=== PATIENT | female | born 1940 | race American Indian/Alaskan Native ===

== ENCOUNTER 2017-05-18 01:52 | Emergency (ER) | payer MEDICARE, OTHER ==
[2017-05-18 02:09] VITALS: O2SAT 98
--- NOTE | 2017-05-18 02:46 | ED PDOC ---
Arrival/HPI - General Chief Complaint: ENT Problem Time Seen by Provider: 05/18/17 02:24 Historian: Patient, Family - History of Present Illness Narrative History of Present Illness (Text): 05/18/17 02:40 Trina Rodriguez is a 77 year old female, whose past medical history includes hypertension and diabetes, who presents to the Emergency department accompanied by family complaining of bilateral ear aches for the past 2-3 days. As per relative, patient [place] [facility] [place] prescribed Amoxicillin, and discharged home. Relative states patient has been medication as directed but denies any significant improvement. Patient denies any fever, chills, chest pain, nausea, vomiting, neck pain, headache, dizziness, or any other complaints. Time/Duration: < week (2-3 days) Symptom Onset: Gradual Symptom Course: Unchanged Activities at Onset: Light Context: Home Past Medical History - Provider Review Nursing Documentation Reviewed: Yes - Infectious Disease Hx of Infectious Diseases: None - Cardiac Hx Cardiac Disorders: Yes Hx Hypertension: Yes - Endocrine/Metabolic Hx Endocrine Disorders: Yes Hx Diabetes Mellitus Type 2: Yes Hx Hypothyroidism: Yes - Psychiatric Hx Substance Use: No Family/Social History - Physician Review Nursing Documentation Reviewed: Yes Family/Social History: Unknown Family HX Smoking Status: Never Smoked Hx Alcohol Use: No Hx Substance Use: No Allergies/Home Meds Allergies/Adverse Reactions: Allergies No Known Allergies Allergy (Verified 05/18/17 02:45) Review of Systems - Physician Review All systems were reviewed & negative as marked: Yes - Review of Systems Constitutional: Normal. absent: Fevers Eyes: Normal ENT: Other (+bilateral ear ache) Respiratory: Normal Cardiovascular: Normal Gastrointestinal: Normal Genitourinary Female: Normal Musculoskeletal: Normal Skin: Normal Neurological: Normal Endocrine: Normal Hemo/Lymphatic: Normal Psychiatric: Normal Physical Exam Vital Signs Reviewed: Yes Vital Signs Temp Pulse Resp BP Pulse Ox 05/18/17 03:47 98.2 F 76 17 148/72 98 05/18/17 02:31 98.9 F 68 18 179/68 H 98 05/18/17 02:05 98.9 F 68 18 179/66 H 98 Temperature: Afebrile Blood Pressure: Hypertensive Pulse: Regular Respiratory Rate: Normal Appearance: Positive for: Well-Appearing, Non-Toxic, Comfortable Pain Distress: None Mental Status: Positive for: Alert and Oriented X 3 - Systems Exam Head: Present: Atraumatic, Normocephalic Pupils: Present: PERRL Extroacular Muscles: Present: EOMI Conjunctiva: Present: Normal Ears: Present: Erythema (Erythema to bilaterale ear canals, Left TM erythema) Mouth: Present: Moist Mucous Membranes Pharnyx: Present: Normal. No: ERYTHEMA, EXUDATE, TONSILS ENLARGED, Peritonsilar Swelling, Uvular Deviation, Muffled/Hoarse Voice, Strider, Soft Palate/Uvular Edema Nose (External): Present: Atraumatic Nose (Internal): Present: Normal Inspection Neck: Present: Normal Range of Motion. No: Meningeal Signs, MIDLINE TENDERNESS , Paraspinal Tenderness Respiratory/Chest: Present: Clear to Auscultation, Good Air Exchange. No: Respiratory Distress, Accessory Muscle Use Cardiovascular: Present: Regular Rate and Rhythm, Normal S1, S2. No: Murmurs Abdomen: Present: Normal Bowel Sounds. No: Tenderness, Distention, Peritoneal Signs Upper Extremity: Present: Normal Inspection. No: Cyanosis, Edema Neurological: Present: GCS=15, CN II-XII Intact, Speech Normal Skin: Present: Warm, Dry, Normal Color. No: Rashes Psychiatric: Present: Alert, Oriented x 3, Normal Insight, Normal Concentration Medical Decision Making ED Course and Treatment: 05/18/17 02:40 Impression: 77 year old female complaining of bilateral ear aches for the past 2-3 days. Differential Diagnosis included but are not limited to: otitis externa vs. otitis media Plan: -- Ciprodex -- Ultram -- Reassess and disposition Progress Notes: - Medication Orders Current Medication Orders: Discontinued Medications Ciprofloxacin/Dexamethasone (Ciprodex Otic) 4 drop AU ONCE ONE PRN Reason: Protocol Stop: 05/18/17 02:48 Last Admin: 05/18/17 03:38 Dose: 4 drop Tramadol HCl (Ultram) 50 mg PO STAT STA Stop: 05/18/17 02:49 Last Admin: 05/18/17 03:38 Dose: 50 mg MAR Pain Assessment Document 05/18/17 03:38 IT (Rec: 05/18/17 03:39 IT [id number]) Pain Reassessment Is this a pain reassessment? No Sleep Is patient sleeping during reassessment? No Presence of Pain Presence of Pain Yes Pain Scale Used Pain Scale Used Numeric - Scribe Statement The provider has reviewed the documentation as recorded by the Petra Espinoza Provider Scribe Attestation: All medical record entries made by the Scribe were at my direction and personally dictated by me. I have reviewed the chart and agree that the record accurately reflects my personal performance of the history, physical exam, medical decision making, and the department course for this patient. I have also personally directed, reviewed, and agree with the discharge instructions and disposition. Disposition/Present on Arrival - Present on Arrival Any Indicators Present on Arrival: No History of DVT/PE: No History of Uncontrolled Diabetes: Yes Urinary Catheter: No History of Decub. Ulcer: No History Surgical Site Infection Following: None - Disposition Have Diagnosis and Disposition been Completed?: Yes Diagnosis: Otitis externa Disposition: HOME/ ROUTINE Disposition Time: 02:49 Patient Plan: Discharge Condition: GOOD Discharge Instructions (ExitCare): Otitis Externa (ED) Additional Instructions: Medication as prescribed/avoid placing any water to the ear canals/follow up with your doctor this week Prescriptions: Ciprofloxacin/Dexamethasone [Ciprodex Otic] 4 drop AU BID #1 bottle traMADol/Acetaminophen [Ultracet 325 MG-37.5 MG] 1 tab PO Q6 PRN #16 tab PRN Reason: Pain Referrals: Brian Taylor DO [Staff Provider] - Follow up with primary Forms: [employer] ([place])
[2017-05-18] MEDS ORDERED: Ciprofloxacin/Dexamethasone OTIC SUSP AU ONE (02:47)
[2017-05-18 03:49] VITALS: BP 148/72; PULSE 76; RESP 17; TEMP 98.2
== END 2017-05-18 03:49 | disposition home or self-care (01) ==
LOC: MERGE 01:52 → ED 01:52
DX: H60.93 Unspecified otitis externa, bilateral (principal)

== ENCOUNTER 2017-07-26 11:42 | Emergency (ER) | payer MEDICARE ==
[2017-07-26 12:00] VITALS: BP 170/85; PULSE 89; RESP 18; TEMP 98.4; O2SAT 98
--- NOTE | 2017-07-26 12:06 | ED PDOC ---
Arrival/HPI - General Chief Complaint: ENT Problem Time Seen by Provider: 07/26/17 11:46 Historian: Patient - History of Present Illness Narrative History of Present Illness (Text): 07/26/17 12:03 A 77 year old female, whose past medical history includes diabetes, presents to the emergency department complaining of her ears feeling "clogged" since yesterday. Patient denies any pain or discomfort. Patient denies any fever, chills, nausea, vomiting, abdominal pain, chest pain, shortness of breath, headache, dizziness or any other complaints. Time/Duration: Other (yesterday) Symptom Course: Unchanged Context: Home Past Medical History - Provider Review Nursing Documentation Reviewed: Yes - Infectious Disease Hx of Infectious Diseases: None - Cardiac Hx Cardiac Disorders: Yes Hx Hypertension: Yes - Endocrine/Metabolic Hx Endocrine Disorders: Yes Hx Diabetes Mellitus Type 1: Yes Hx Hyperthyroidism: Yes - Psychiatric Hx Substance Use: No Family/Social History - Physician Review Nursing Documentation Reviewed: Yes Family/Social History: No Known Family HX Smoking Status: Never Smoked Hx Alcohol Use: No Hx Substance Use: No Allergies/Home Meds Allergies/Adverse Reactions: Allergies No Known Allergies Allergy (Verified 07/26/17 12:00) Review of Systems - Review of Systems Constitutional: absent: Fevers, Night Sweats ENT: Other ("Clogged" ears). absent: TMJ Pain Respiratory: absent: SOB Cardiovascular: absent: Chest Pain Gastrointestinal: absent: Abdominal Pain, Nausea, Vomiting Neurological: absent: Headache, Dizziness Physical Exam - Physical Exam Narrative Physical Exam (Text): Constitutional: No acute distress. Head: Normocephalic. Atraumatic. Eyes: PERRL. ENT: Moist mucous membranes. Cerumen noted in bilateral ears. Neck: Supple. No stiffness. Cardiovascular: Regular rate. Chest: No tenderness. Respiratory: Clear to auscultation bilaterally. GI: Soft. Nontender. Nondistended. Back: No CVA tenderness. Musculoskeletal: No tenderness or swelling of extremities. Skin: No rash. Neurologic: Alert, no focal deficit. Vital Signs Reviewed: Yes Vital Signs Temp Pulse Resp BP Pulse Ox 07/26/17 11:56 98.4 F 89 18 170/85 H 98 Temperature: Afebrile Blood Pressure: Hypertensive Pulse: Regular Respiratory Rate: Normal Appearance: Positive for: Well-Appearing, Non-Toxic, Comfortable Pain Distress: None Mental Status: Positive for: Alert and Oriented X 3 Finger Stick Blood Glucose: 123 Medical Decision Making ED Course and Treatment: Cerumen removed from bilateral ears with ear loop and patient states her hearing has returned to normal. - Scribe Statement The provider has reviewed the documentation as recorded by the Scribe Baylee Bean Provider Scribe Attestation: All medical record entries made by the Scribe were at my direction and personally dictated by me. I have reviewed the chart and agree that the record accurately reflects my personal performance of the history, physical exam, medical decision making, and the department course for this patient. I have also personally directed, reviewed, and agree with the discharge instructions and disposition. Disposition/Present on Arrival - Present on Arrival Any Indicators Present on Arrival: No History of DVT/PE: No History of Uncontrolled Diabetes: No Urinary Catheter: No History of Decub. Ulcer: No History Surgical Site Infection Following: None - Disposition Have Diagnosis and Disposition been Completed?: Yes Diagnosis: Cerumen impaction Disposition: HOME/ ROUTINE Disposition Time: 12:14 Patient Plan: Discharge Condition: STABLE Discharge Instructions (ExitCare): Ear Wax Impaction Prescriptions: Carbamide Peroxide [Debrox Ear Drops] 5 drop AU BID #1 bottle Forms: [employer] ([place])
== END 2017-07-26 12:28 | disposition home or self-care (01) ==
LOC: ED 11:42
DX: H61.23 Impacted cerumen, bilateral (principal); E11.9 Type 2 diabetes mellitus without complications